=== PATIENT | female | born 1960 | race Caucasian/White ===

== ENCOUNTER → 2016-06-26 | Outpatient (CLI) | payer OTHER ==
[~2016-06-26] MED LIST: ACETAMINOPHEN; ACETAMINOPHEN PO; ALBUTEROL17 GM INH; ALBUTEROL20 ml INH; ASPIRIN81 M2 PO; ATROVENT HFA12.9 G2 INH; BRILINTA90 MG PO; CHANTIX PO; CLARITIN10 M2 PO; CLOPIDOGREL75 MG PO; DITROPAN5 MG PO; LIPITOR40 MG PO; LISINOPRIL2.5 MG PO; METFORMIN HCL500 M1 PO; NICOTINE TRANSD14 MG EXT; NITROQUICK0.4 MG SL; ONDANSETRON4 MG/TAB PO; OXYGEN; PANTOPRAZOLE SO40 MG PO; PROTONIX PO; REGLAN10 MG PO
== END | disposition home or self-care (01) ==
LOC: CNUC 08:45
DX: R07.9 Chest pain, unspecified (principal)

== ENCOUNTER → 2016-06-29 | Outpatient (CLI) | payer OTHER ==
--- NOTE | ~2016-06-29 | CT2 ---
[facility] A Service of [facility] RADIOLOGY TEXT RESULTS PATIENT: ELEN KHANNA LOCATION: [facility] : 58 UNIT #: [id number] AGE: [address]: Alex Solano MD SEX: F ORDER DR: [id number] [facility] [address] [place], [place] [address] [id number] O MR#: [id number] Acc #: [id number] NAME: ELEN KHANNA : 1960 SEX: F STUDY DATE/TIME: 06/29/2016 11:04 UNIT: [facility] ROOM: STUDY DESCRIPTION: CT Abd and Pelv W Cont Attending Physician: Alex Solano M.D. Referring Physician: Alex Solano M.D. Ordering Physician: Alex Solano M.D. Primary Care Physician: Destini Renee A.P.R.N. MEDICAL IMAGING REPORT This report is preliminary unless electronic signature is present EXAM CT abdomen and pelvis with contrast. INDICATION Hernia repair times 2, most recent 10 years ago. Recurrent hernia over the past month. PROCEDURE Contrast-enhanced CT of the abdomen and pelvis. 100 mL of Isovue-370. This CT exam was performed with one or more of the following radiation dose reduction techniques: automatic exposure control, adjustment of mA and/or kV according to patient size, and iterative reconstruction. COMPARISON 03/18/2015 FINDINGS ABDOMEN WITH CONTRAST: Included lung bases predominately clear. Liver, spleen, kidneys, adrenal glands, pancreas unremarkable. Previous cholecystectomy. A few uncomplicated sigmoid diverticula. Moderate colonic stool. Normal appendix. Patient is status post upper abdominal midline ventral hernia repair. There is a recurrent fat-containing hernia at the level of the repair that measures 6.1 cm and has a neck of approximately 2.2 cm. PELVIS WITH CONTRAST: No pelvic mass or fluid. No aggressive appearing bone lesion. IMPRESSION Previous upper abdominal hernia repair. Recurrent hernia, as detailed [facility] A Service of [facility] / [facility] RADIOLOGY TEXT RESULTS PATIENT: ELEN KHANNA [facility] [id number] : 58 UNIT #: [id number] AGE: [address]: Alex Solano MD SEX: F ORDER DR: above contains only fat. Dictated by... Hebert Randhawa M.D. THIS IS AN ELECTRONICALLY VERIFIED REPORT Hebert Randhawa M.D. at 06/29/2016 4:52 PM EED/prabhu TD: 06/29/2016 14:04 JOB #: [id number] MEDICAL IMAGING REPORT COPY
--- NOTE | ~2016-06-29 | ST ---
Unit #: [id number] #: [id number] Patient: ELEN KHANNA [id number] [address] [address] [id number] O MR#: [id number] NAME: ELEN KHANNA : 1960 SEX: F STUDY DATE/TIME: UNIT: [facility] ROOM: STUDY DESCRIPTION: Stress Test Attending Physician: Alex Solano M.D. Referring Physician: Alex Solano M.D. Primary Care Physician: Destini Renee A.P.R.N. CARDIOLOGY REPORT EXAM Stress test PROCEDURAL NARRATIVE Baseline EKG normal sinus rhythm, normal EKG. Resting heart rate 73 per minute, blood pressure 122/94. This 55-year-old patient received 0.4 mg of Lexiscan intravenously. During the test no ischemic changes noted, no arrhythmias noted, blood pressure was stable. INTERPRETATION 1. Nondiagnostic EKG during a Lexiscan. 2. No arrhythmias noted. 3. Stable blood pressure during the test. 4. Correlate with the Cardiolite study. Dictated by... Jude Villaseñor/xavi TD: 06/29/2016 22:52 JOB #: [id number] CC: Emiliana/jaden Please Delete CARDIOLOGY REPORT X Jamel Perez MD CARDIOLOGY REPORT
--- NOTE | ~2016-06-29 | TH ---
Unit #: [id number] #: [id number] Patient: ELEN KHANNA [id number] [address] [address] [id number] O MR#: [id number] NAME: ELEN KHANNA : 1960 SEX: F STUDY DATE/TIME: UNIT: [facility] ROOM: STUDY DESCRIPTION: Imaging Study Attending Physician: Alex Solano M.D. Referring Physician: Alex Solano M.D. Primary Care Physician: Destini Renee A.P.R.N. CARDIOLOGY REPORT EXAM Cardiolite study DESCRIPTION OF PROCEDURE This 55-year-old patient received 0.4 mg of Lexiscan intravenously followed by 30.9 mCi of technetium-99m Cardiolite and images were obtained according to a standard SPECT protocol. For rest images 11.87 mCi of Cardiolite were injected. Images were reviewed in both phases. FINDINGS Overall study quality is excellent. LV cavity size is normal in both images. There is no lung activity. RV is normal. Rotating raw data showed no significant artifact, soft tissue attenuation or GI uptake. Review of the SPECT images showed a normal homogeneous radiotracer concentration throughout the myocardium in both the stress and the rest images. Gated images showed a normal wall thickening and wall motion with an estimated LV ejection fraction of 58%. IMPRESSION 1. Myocardial perfusion imaging is normal. 2. No evidence of ischemia or infarct. 3. Normal left ventricular dimensions. 4. Normal systolic left ventricular function with an estimated LV ejection fraction of 58%. Dictated by... Jude Villaseñor/xavi TD: 06/29/2016 23:01 JOB #: [id number] Unit #: [id number] #: [id number] Patient: ELEN KHANNA CARDIOLOGY REPORT X Jamel Perez MD CARDIOLOGY REPORT
== END | disposition home or self-care (01) ==
LOC: CCAT 07:53
DX: R10.9 Unspecified abdominal pain (principal); R07.9 Chest pain, unspecified; R19.7 Diarrhea, unspecified; R11.2 Nausea with vomiting, unspecified; K46.9 Unspecified abdominal hernia without obstruction or gangrene; Z98.890 Other specified postprocedural states
CPT/HCPCS: 74177; 78452; 93017; A9500; J2785; Q9967

== ENCOUNTER → 2016-06-29 | Outpatient (CLI) | payer OTHER ==
[2016-06-29 08:28] LABS: HEMATOCRIT 38.1 % (35.0-45.0); HEMOGLOBIN 12.8 gm/dL (12.0-16.0); MEAN CORPUSCULAR HGB CONC 33.7 g/dL (30-36); MEAN PLATELET VOLUME 7.9 FL (6.5-11.5); RED BLOOD COUNT 3.66 X10e (3.90-5.30); RED CELL DISTRIBUTION WIDTH 13.6 % (11.0-15.5); WHITE BLOOD COUNT 5.4 X10e3 (4.0-10.5)
[2016-06-29 08:58] LABS: ALBUMIN SERUM 3.8 g/dL (3.5-5.0); ALKALINE PHOSPHATASE 87 U/L (32-92); ALT (SGPT) 11 U/L (10-40); AST (SGOT) 16 U/L (10-42); BILIRUBIN,TOTAL 0.5 mg/dL (0.2-2.0); BLOOD UREA NITROGEN 9 mg/dL (9-23); BUN/CREATININE RATIO 11.25; CALCIUM SERUM 8.8 mg/dL (8.4-10.2); CARBON DIOXIDE 25 mmol/L (22-31); CHLORIDE 106 mmol/L (100-111); CREATININE SERUM 0.8 mg/dL (0.6-1.4); GLOM FILT RATE Estimated ABOVE60 mL/min (>60); GLUCOSE FASTING 103 mg/dL (70-110); POTASSIUM 4.2 mmol/L (3.5-5.1); PROTEIN TOTAL SERUM 7.4 g/dL (6.0-8.3); SODIUM 136 mmol/L (135-145)
== END | disposition home or self-care (01) ==
LOC: CCAT 07:17
PROVIDERS: Internal Medicine Cardiovascular Disease
DX: R10.9 Unspecified abdominal pain (principal); R19.7 Diarrhea, unspecified; R11.2 Nausea with vomiting, unspecified
CPT/HCPCS: 36415; 80053; 85027

== ENCOUNTER → 2016-07-17 | Day surgery (SDC) | payer OTHER ==
--- NOTE | ~2016-07-17 | OR ---
Unit #: [id number] #: [id number] Patient: ELEN KHANNA [id number] [address] [place], [place] [address] [id number] O MR#: [id number] NAME: ELEN KHANNA ROOM: Date of Procedure: 07/17/2016 Admission Date: 07/17/2016 Surgeon: Alex Solano M.D. : 1960 Attending Physician: Alex Solano M.D. Referring Physician: Alex Solano M.D. Primary Care Physician: Destini Renee A.P.R.N. OPERATIVE REPORT PROCEDURE PERFORMED Esophagogastroduodenoscopy with biopsy and colonoscopy with snare polypectomy. INDICATIONS FOR PROCEDURE A 55-year-old female with generalized abdominal pain, average risks for colorectal cancer, chronic GERD as was significant unexplained weight loss, undergoing evaluation with upper endoscopy and colonoscopy. MEDICATIONS Monitored anesthesia. POSTOPERATIVE FINDINGS 1. Normal esophagus. 2. Mild chronic appearing gastritis, biopsies taken. Normal duodenum and distal duodenum. 3. Colonoscopy completed to cecum and terminal ileum. 4. Five polyps, 3 to 5 mm, descending colon and one in sigmoid colon, all snared and sent for histopathology. 5. Internal hemorrhoids. 6. Mild diverticulosis. 7. Prep was good. PLAN Follow up on the pathology report. Symptomatic treatment for now. DESCRIPTION OF PROCEDURE The patient was explained of the procedure, risks, and benefits along with risks and benefits of anesthesia. She was brought to the endoscopy room. Propofol anesthesia was given. Bite block was placed. The scope was passed down the mouth into the esophagus, stomach, duodenum, and distal duodenum. Findings as described. Biopsies taken. Gently, I pulled the scope out of the patient's mouth. She tolerated this part very well. At this time, she was turned around and repositioned for colonoscopy. Rectal exam was done, which was normal. Colonoscope was lubricated, passed up the rectum, advanced under direct vision all the way to the cecum. Cecum was identified by ileocecal valve and appendiceal orifice. Multiple polyps were seen as described. They were all snared and sent for histopathology. I retroflexed in the rectum, internal hemorrhoids noted. Scope was gently pulled out. She tolerated it well. Unit #: [id number] #: [id number] Patient: ELEN KHANNA Dictated by... Jude Gifford/harshil TD: 07/18/2016 01:05 JOB #: [id number] OPERATIVE REPORT X Alex Solano MD PROCEDURE OPERATIVE NOTE
== END | disposition home or self-care (01) ==
LOC: COPS 12:24
DX: Z12.11 Encounter for screening for malignant neoplasm of colon (principal); K29.50 Unspecified chronic gastritis without bleeding; D12.4 Benign neoplasm of descending colon; K63.5 Polyp of colon; K57.30 Diverticulosis of large intestine without perforation or abscess without bleeding; K64.8 Other hemorrhoids; K21.9 Gastro-esophageal reflux disease without esophagitis; E11.9 Type 2 diabetes mellitus without complications; I25.10 Atherosclerotic heart disease of native coronary artery without angina pectoris; J44.9 Chronic obstructive pulmonary disease, unspecified; J45.909 Unspecified asthma, uncomplicated; F17.210 Nicotine dependence, cigarettes, uncomplicated; M19.90 Unspecified osteoarthritis, unspecified site; Z79.02 Long term (current) use of antithrombotics/antiplatelets; Z79.82 Long term (current) use of aspirin; Z79.84 Long term (current) use of oral hypoglycemic drugs; Z79.899 Other long term (current) drug therapy; Z95.5 Presence of coronary angioplasty implant and graft; Z98.890 Other specified postprocedural states
CPT/HCPCS: 82947; 88305; 88312